=== PATIENT | female | born 1970 | race Caucasian/White ===

== ENCOUNTER → 2016-11-24 | Outpatient (CLI) | payer OTHER ==
--- NOTE | 2016-11-25 09:25 | REPMRS ---
Patient History The patient states she has not had a clinical breast exam in over a year. No known family history of cancer. Digital Mammo Screening Bilat: November 24, 2016 - Exam #: [id number] Bilateral CC and MLO view(s) were taken. Technologist: Abigail Boyd, Technologist Prior study comparison: October 10, 2015, bilateral digital mammo screening bilat performed at [facility]. 2011, digital bilateral screening mammo, performed at [facility]. FINDINGS: There are scattered fibroglandular densities. There has been no change in the appearance of the mammogram from the prior studies. There is a mild amount of residual fibroglandular tissue which is fairly symmetric. There is no interval development of dominant mass, architectural distortion, or clustered microcalcification suggestive of malignancy. ASSESSMENT: BI-RADS/ACR category 1 mammogram. Negative. Recommendation Routine screening mammogram in 1 year (for women over age 40). This mammogram was interpreted with the aid of an FDA-approved computer-aided dectection system. Electronically Signed By: Anand Ley MD 11/25/16 0924
== END ==
LOC: M RAD 17:44
PROVIDERS: ATTEND Nurse Practitioner Family
DX: Z12.31 Encounter for screening mammogram for malignant neoplasm of breast (principal)

== ENCOUNTER → 2019-03-13 | Outpatient (CLI) | payer OTHER | LOC: M RAD 17:21 | PROVIDERS: ATTEND Student in an Organized Health Care Education/Training Program | DX: Z53.9 Procedure and treatment not carried out, unspecified reason (principal); Z12.31 Encounter for screening mammogram for malignant neoplasm of breast ==

== ENCOUNTER → 2019-03-23 | Outpatient (CLI) | payer OTHER ==
--- NOTE | 2019-03-23 19:13 | REP ---
BILATERAL SCREENING DIGITAL MAMMOGRAM WITHOUT 3D TOMOSYNTHESIS: There are no palpable abnormalities or other breast complaints. The the patient states she has not had a clinical breast examination in over a year. The Tyrer-Cuzick Score is: 9.5% . Comparison is 09/20/2015. There are scattered areas of fibroglandular density. There is a new faintly visible 6 mm nodular density in the left breast, not present previously . It is not identified on the MLO view. Impression: BIRADS/ACR category 0 mammogram. Additional imaging evaluation is need. Recommendation: The patient should return for spot compression views and ultrasound of the new right breast nodular density. This mammogram was interpreted with the aid of a FDA approved computer-aided detection system. A. Negative mammogram reports should not delay biopsy if a dominant or clinically suspicious mass is present. B. Not all breast cancers are identified by mammography or tomosynthesis. C. Adenosis and dense breasts may obscure an underlying neoplasm. Patient letter M0. Electronically Signed by Anand Galeana MD 03/23/2019 07:05 P
== END ==
LOC: M RAD 17:32
PROVIDERS: ATTEND Student in an Organized Health Care Education/Training Program
DX: Z12.31 Encounter for screening mammogram for malignant neoplasm of breast (principal); N63.20 Unspecified lump in the left breast, unspecified quadrant

== ENCOUNTER → 2019-04-06 | Outpatient (CLI) | payer OTHER ==
--- NOTE | 2019-04-06 15:06 | REP ---
DIAGNOSTIC MAMMOGRAM LEFT BREAST: Multiple spot compression views left breast performed and correlated with recent mammogram of 03/23/2019 which showed a possible subcentimeter nodule centrally in the left breast, only seen on the CC view. The nodular density compresses out. There is no persistent nodule on today's spot compression views. There is no change since prior studies in the appearance of the fibroglandular tissue. IMPRESSION: ACR 2 benign. The suspected subcentimeter nodule on the recent left CC view of 03/23/2019 compresses out and is not seen. No persistent nodule identified. Recommend followup mammogram in one year. BIRADS 2: BI-RADS/ACR category 2 mammogram. Benign Findings. This mammogram was interpreted with the aid of an FDA-approved computer-aided detection system. The patient letter being requested is M1 Electronically Signed by Anand Ley MD 04/08/2019 10:57 A
== END ==
LOC: M RAD 12:46
PROVIDERS: ATTEND Student in an Organized Health Care Education/Training Program
DX: N63.10 Unspecified lump in the right breast, unspecified quadrant (principal)

== ENCOUNTER 2020-02-15 06:28 | Day surgery (SDC) | payer OTHER ==
[~2020-02-15] VITALS: Ht 157.5 cm; Wt 93.9 kg
[~2020-02-15 06:28] MED LIST: LR 1,000 ML IV ONE
[2020-02-15] MEDS ORDERED: NAPR-885 PO (06:56)
[2020-02-15] MEDS ORDERED: FLUO20CA22 PO (06:56)
[2020-02-15] MEDS ORDERED: CALC-333 PO (06:56)
[2020-02-15] MEDS ORDERED: LISI-542 PO (06:56)
[2020-02-15] MEDS ORDERED: OMEG1CAP16 PO (06:56)
[2020-02-15] MEDS ORDERED: ATOR1TAB19 PO (06:56)
[2020-02-15] MEDS ORDERED: MULTCAP PO (06:56)
[2020-02-15] MEDS ORDERED: METF-838 PO (06:56)
[2020-02-15] MEDS ORDERED: PHAR25CA PO (06:56)
[2020-02-15] MEDS ORDERED: POVIDONE-IODINE 5% OPHTH PREP SOL 30ML As Ordered ONE (07:44)
[2020-02-15] MEDS ORDERED: mitoMYcin 0.2 MG/VIAL KIT FOR OPHTHALMIC USE (J7315 PER 0.2MG) As Ordered ONE (07:45)
[2020-02-15] MEDS ORDERED: PROPARACAINE 0.5% OPHTH SOL 15ML As Ordered ONE (07:48)
[2020-02-15] MEDS ORDERED: LIDOCAINE 2% W/EPINEPHRINE 20ML VIAL **PRES FREE As Ordered ONE (08:24)
[2020-02-15] MEDS ORDERED: propofoL 200 MG/20 ML VIAL As Ordered ONE (08:40)
[2020-02-15 09:00] VITALS: BP 143/86
[2020-02-15] MEDS ORDERED: MIDAZOLAM INJ 2MG/2ML VIAL (J2250 PER 1MG) As Ordered ONE (09:33)
[2020-02-15] MEDS ORDERED: fentaNYL 250 MCG/5 ML INJECTION (J3010) As Ordered ONE (09:33)
== END 2020-02-15 09:31 | disposition home or self-care (01) ==
LOC: M SDC 06:28
PROVIDERS: ATTEND Ophthalmology
DX: H18.891 Other specified disorders of cornea, right eye (principal); I10 Essential (primary) hypertension; E11.9 Type 2 diabetes mellitus without complications; K21.9 Gastro-esophageal reflux disease without esophagitis; Z79.84 Long term (current) use of oral hypoglycemic drugs; Z79.899 Other long term (current) drug therapy; G43.909 Migraine, unspecified, not intractable, without status migrainosus; F41.9 Anxiety disorder, unspecified; F32.9 Major depressive disorder, single episode, unspecified
CPT/HCPCS: 65778; 81025; A6024; C1762; J2250; J3010

== ENCOUNTER 2021-01-14 10:58 | Day surgery (SDC) | payer OTHER ==
[~2021-01-14] VITALS: Ht 157.5 cm; Wt 93.8 kg
[~2021-01-14 10:58] MED LIST changes: +ATOR1TAB19 PO; +CALC-333 PO; +CALC1TAB30 PO; +FLUO20CA22 PO; +FLUO40CA PO; +LISI-898 PO; +LISI10TA22 PO; +LORA-674 PO; +METF-838 PO; +MULTCAP PO; +NAPR-885 PO; +OMEG1CAP16 PO; +OMEG350C PO; +PHAR25CA PO; +VITMTA PO
[2021-01-14 12:43] LABS: HEMATOCRIT 31.8 % (36.0-47.0); HEMOGLOBIN 9.5 g/dl (12.0-15.5); MEAN CORPUSCULAR HEMOGLOBIN 23.5 pg (27.0-33.0); MEAN CORPUSCULAR HGB CONC 29.9 g/dl (32.0-36.5); MEAN CORPUSCULAR VOLUME 78.7 fl (80.0-96.0); PLATELET COUNT, AUTOMATED 391 10^3/uL (150-450); RED BLOOD COUNT 4.04 10^6/uL (4.00-5.40); WHITE BLOOD COUNT 6.3 10^3/uL (4.0-10.0)
[2021-01-14 13:20] LABS: HCG, SERUM QUALITATIVE NEGATIVE (NEGATIVE)
[2021-01-14] MEDS ORDERED: LEVONORGESTREL 52MG (MIRENA) IUD As Ordered ONE (13:25)
[2021-01-14] MEDS ORDERED: fentaNYL 100 MCG/2 ML INJECTION (J3010) As Ordered ONE (13:27)
[2021-01-14] MEDS ORDERED: propofoL 200 MG/20 ML VIAL As Ordered ONE (13:28)
[2021-01-14] MEDS ORDERED: dexameTHASONE 4 MG/ML 1ML VIAL (J1100 PER 1MG) As Ordered ONE (13:57)
[2021-01-14] MEDS ORDERED: ONDANSETRON 4MG/2ML VIAL As Ordered ONE ×2 (13:57→14:49)
[2021-01-14] MEDS ORDERED: HYDROmorphone HCL 2 MG/ML 1ML VIAL (J1170) As Ordered ONE (14:21)
[2021-01-14] MEDS ORDERED: LR 1,000 ML IV SCH (15:00)
[2021-01-14] MEDS ORDERED: oxyCODONE 5MG TAB PO PRN (15:00)
[2021-01-14] MEDS ORDERED: KETOROLAC 30 MG/ML 1ML VIAL IV PRN (15:00)
[2021-01-14] MEDS ORDERED: fentaNYL 100 MCG/2 ML INJECTION (J3010) IV PRN (15:00)
[2021-01-14] MEDS ORDERED: ONDANSETRON 4MG/2ML VIAL IV PRN (15:00)
[2021-01-14] MEDS ORDERED: METOCLOPRAMIDE INJ 10MG/2ML VIAL (J2765 PER 1) As Ordered ONE (15:17)
[2021-01-14] MEDS ORDERED: PROMETHAZINE INJ 25 MG/ML VIAL (J2550) IV PRN (15:25)
[2021-01-14] MEDS ORDERED: METOCLOPRAMIDE INJ 10MG/2ML VIAL (J2765 PER 1) IV PRN (15:25)
--- NOTE | 2021-01-14 15:32 | ROOPDOC ---
[facility] Report Of Operation Report of Operation DATE OF PROCEDURE: 01/14/21 PREPROCEDURE DIAGNOSES: Abnormal uterine bleeding, possible endometrial polyp. POSTPROCEDURE DIAGNOSES: Two endometrial canal masses vs fibroids on the anterior and posterior endometrial canal surfaces PROCEDURE PERFORMED: Hysteroscopy, dilation and curettage SURGEON: Varinder Valentin DO UNDRAPED ARTIST MODEL: None ANESTHESIA: GETA ESTIMATED BLOOD LOSS: Approximately 10ml. COMPLICATIONS: None REMARKS: None FINDINGS: Uterus sounded to 10 cm. 2 cm masses vs fibroids in the endometrial cavity on the anterior and posterior surfaces SPECIMENS REMOVED: Endometrial curettings DESCRIPTION OF PROCEDURE: The risks, benefits, indications, and alternatives of the procedure were reviewed with the patient and informed consent was obtained. The patient was taken to the operating room where IV sedation was obtained without difficulty. The patient was then placed in the lithotomy position using Harlan Stirrups. An exam under anesthesia was then performed and was notable for an enlarged, bulky uterus approximately 10-12 weeks in size. The patient was then prepped and draped in the sterile fashion and the bladder was drained using an in-and-out catheter. A sterile speculum was placed in the patient's vagina and the cervix was visualized. A single toothed tenaculum was used to grasp the anterior lip of the cervix. A uterine sound was then gently placed into the uterus, which sounded to 10 cm in length. The cervix was then gently, serially dilated to a size 14 with the carla dilator. The hysteroscope was then primed . The hysteroscope was then advanced through the endocervical canal under direct visualization. After distension of the uterus with warm saline, a systematic examination of the intrauterine cavity was performed. There were two masses vs fibroids noted wi thin the uterine cavity, both approximately 2 cm in size. These could not be removed easily with graspers, scissors, or forceps. The tubal ostia could not be visualized bilaterally. The Hysteroscope was then removed from the uterus. Fluid deficit was appreciated to be almost entirely on the floor. A gentle, sharp curettage was then performed and a large amount of blood, clot, and tissue was obtained. All tissue was sent to pathology for review. The single toothed tenaculum was removed with good hemostasis noted at the tenaculum sites. All instruments were then removed from the patient's vagina. Hysteroscopic fluid deficit was 30ml of normal saline. It was decided that the IUD could not be safely placed into the uterus secondary to the distorted endome trial cavity. At the completion of the case the sponge and needle counts were correct x 2. The patient tolerated the procedure well. The patient was taken to the PACU in stable condition. VARINDER VALENTIN DO Jan 14, 2021 15:32
[2021-01-14 16:40] VITALS: BP 134/82
== END 2021-01-14 16:43 | disposition home or self-care (01) ==
LOC: M SDC 10:58
PROVIDERS: ATTEND Obstetrics & Gynecology
DX: N93.9 Abnormal uterine and vaginal bleeding, unspecified (principal); N84.0 Polyp of corpus uteri; E11.9 Type 2 diabetes mellitus without complications; I10 Essential (primary) hypertension; E78.5 Hyperlipidemia, unspecified; Z79.84 Long term (current) use of oral hypoglycemic drugs; Z79.899 Other long term (current) drug therapy; F32.9 Major depressive disorder, single episode, unspecified
CPT/HCPCS: 36415; 58558; 84703; 85027; 88305; J1100; J1170; J2405; J2765; J3010; J7298

== ENCOUNTER → 2021-02-14 | Outpatient (CLI) | payer OTHER ==
[~2021-02-14] MED LIST changes: -LR 1,000 ML IV ONE
--- NOTE | 2021-02-14 16:10 | REPMRS ---
Patient History The patient states she has not had a clinical breast exam in over a year. No known family history of cancer. Took hormonal contraceptives for 5 years. Covid vaccines 07/2020 both in right arm. Pt denied . Patient states no breast complaints today. Patient has signed MRS History Sheet. Digital Woman Screen Mammo: February 14, 2021 - Exam #: [id number] Bilateral CC and MLO view(s) were taken. Technologist: RT Tereso Prior study comparison: April 06, 2019, right breast digital mammo diagnostic unilateral, performed at [facility]. March 23, 2019, bilateral digital mammo screening bilat, performed at [facility]. November 24, 2016, bilateral digital mammo screening bilat, performed at [facility]. October 10, 2015, bilateral digital mammo screening bilat, performed at [facility]. FINDINGS: The breast tissue is almost entirely fat. The Volpara volumetric breast density category is: A. There has been no change in the appearance of the mammogram from the prior studies. There is no interval development of dominant mass, architectural distortion, or grouped microcalcification typical of malignancy. 3-D tomosynthesis shows no additional findings. Assessment: BI-RADS/ACR category 1 mammogram. Negative Mammogram. Recommendation Routine screening mammogram of both breasts in 1 year (for women over age 40). This patient's [facility] Lifetime Breast Cancer RIsk is estimated at 9.2 %. This mammogram was interpreted with the aid of an FDA-approved computer-aided dectection system. Electronically Signed By: Kenroy Baker MD 02/14/21 [id number]
== END ==
LOC: M WHC 15:20
PROVIDERS: ATTEND Nurse Practitioner Primary Care
DX: Z12.31 Encounter for screening mammogram for malignant neoplasm of breast (principal)

== ENCOUNTER → 2022-03-25 | Outpatient (CLI) | payer OTHER ==
[~2022-03-25] MED LIST changes: -LISI-898 PO; +LISI5TAB11 PO
== END ==
LOC: M WHC 06:59
PROVIDERS: ATTEND Student in an Organized Health Care Education/Training Program
DX: Z12.31 Encounter for screening mammogram for malignant neoplasm of breast (principal)

== ENCOUNTER → 2023-05-05 | Outpatient (CLI) | payer OTHER ==
[~2023-05-05] MED LIST changes: +LORA-1041 PO; -LORA-674 PO
== END ==
LOC: M WHC 14:29
PROVIDERS: ATTEND Nurse Practitioner Primary Care
DX: Z12.31 Encounter for screening mammogram for malignant neoplasm of breast (principal)

== ENCOUNTER 2024-02-02 11:51 | Outpatient (CLI) | payer OTHER ==
[~2024-02-02] VITALS: Ht 154.9 cm; Wt 91.0 kg
[~2024-02-02 11:51] MED LIST changes: +ALBUTEROL SULFATE 2.5MG/0.5ML INH NEB SOLN INH PRN; +EPINEPHrine INJ 1 MG/ML 1ML AMP IM PRN; +FLUO-365 PO; -FLUO20CA22 PO; +diphenhydrAMINE 50MG/ML VIAL IV PRN; +methylPREDNISolone 125MG 2ML VIAL IV PRN
[2024-02-02] MEDS ORDERED: NS 1,000 ML IV SCH (12:00)
[2024-02-02 12:10] VITALS: BP 142/88; O2SAT 98
[2024-02-02] MEDS: FERRIC CARBOXYMALTOSE INJ 750 MG in NS 250 ML (>50kg) IV ONE (12:20)
[2024-02-02] MEDS ORDERED: CYCL5TAB PO (12:48)
[2024-02-02] MEDS ORDERED: SEMA0.257 SQ (12:48)
[2024-02-02] MEDS ORDERED: SUMA25TA3 PO (12:48)
[2024-02-02 13:40] VITALS: BP 144/83; O2SAT 99
== END 2024-02-02 13:40 ==
LOC: M INFU 11:51
PROVIDERS: ATTEND Internal Medicine
DX: D64.9 Anemia, unspecified (principal)
CPT/HCPCS: 96365; J1439

== ENCOUNTER 2024-02-16 12:10 | Outpatient (CLI) | payer OTHER ==
[~2024-02-16] VITALS: Ht 157.5 cm; Wt 90.9 kg
[2024-02-16 12:10] VITALS: BP 146/73; O2SAT 97
[~2024-02-16 12:10] MED LIST changes: +CYCL5TAB PO; +NS 1,000 ML IV SCH; +SEMA0.257 SQ; +SUMA25TA3 PO
[2024-02-16] MEDS: FERRIC CARBOXYMALTOSE INJ 750 MG in NS 250 ML (>50kg) IV ONE (12:34)
[2024-02-16 13:50] VITALS: BP 144/66; O2SAT 100
== END 2024-02-16 15:53 ==
LOC: M INFU 12:10
PROVIDERS: ATTEND Internal Medicine
DX: D64.9 Anemia, unspecified (principal)
CPT/HCPCS: 96365; J1439

== ENCOUNTER → 2024-04-03 | Outpatient (CLI) | payer OTHER ==
[~2024-04-03] MED LIST changes: -ALBUTEROL SULFATE 2.5MG/0.5ML INH NEB SOLN INH PRN; -EPINEPHrine INJ 1 MG/ML 1ML AMP IM PRN; +MULT-90 PO; -NS 1,000 ML IV SCH; +PROHANCE 279.3MG/ML 5ML VIAL As Ordered ONE; -diphenhydrAMINE 50MG/ML VIAL IV PRN; -methylPREDNISolone 125MG 2ML VIAL IV PRN
== END ==
LOC: M RAD 15:42
PROVIDERS: ATTEND Internal Medicine
DX: D49.7 Neoplasm of unspecified behavior of endocrine glands and other parts of nervous system (principal)
CPT/HCPCS: 70553; A9576

== ENCOUNTER → 2024-05-08 | Outpatient (CLI) | payer OTHER ==
[~2024-05-08] MED LIST changes: -CYCL5TAB PO; +CYCL5TAB4 PO; -PROHANCE 279.3MG/ML 5ML VIAL As Ordered ONE
== END ==
LOC: M WHC 13:47
PROVIDERS: ATTEND Internal Medicine
DX: Z12.31 Encounter for screening mammogram for malignant neoplasm of breast (principal)

== ENCOUNTER → 2024-05-26 | Outpatient (CLI) | payer OTHER ==
[~2024-05-26] MED LIST changes: +ALEV220T22 PO; +GNP1000T11 PO; +LISI20TA33 PO; +NIFE60TA96 PO; +PERC5TAB12 PO; +SEMA1PEN2 SQ
== END ==
LOC: M EKG 12:43
PROVIDERS: ATTEND Anesthesiology
DX: Z01.818 Encounter for other preprocedural examination (principal); I10 Essential (primary) hypertension; E11.9 Type 2 diabetes mellitus without complications; I45.19 Other right bundle-branch block

== ENCOUNTER 2024-05-31 06:52 | Day surgery (SDC) | payer OTHER ==
[~2024-05-31] VITALS: Ht 157.5 cm; Wt 90.6 kg
[~2024-05-31 06:52] MED LIST changes: -PERC5TAB12 PO
[2024-05-31] MEDS ORDERED: NS (Normal Saline) 0.9% 1,000 ML IV SCH ×2 (07:00→11:30)
[2024-05-31 07:47] LABS: HEMATOCRIT 40.8 % (36.0-47.0); HEMOGLOBIN 13.4 g/dl (12.0-15.5); MEAN CORPUSCULAR HEMOGLOBIN 30.2 pg (27.0-33.0); MEAN CORPUSCULAR HGB CONC 32.8 g/dl (32.0-36.5); MEAN CORPUSCULAR VOLUME 92.1 fl (80.0-96.0); PLATELET COUNT, AUTOMATED 413 10^3/uL (150-450); RED BLOOD COUNT 4.43 10^6/uL (4.00-5.40); WHITE BLOOD COUNT 7.1 10^3/uL (4.0-10.0)
[2024-05-31] MEDS: SCOPOLAMINE 1MG TRANSDERMAL PATCH TOP ONE (08:04)
[2024-05-31 08:05] LABS: BLOOD UREA NITROGEN 9 MG/DL (9-23); CALCIUM LEVEL 9.3 MG/DL (8.5-10.1); CARBON DIOXIDE LEVEL 24 MMOL/L (20-31); CHLORIDE LEVEL 106 MMOL/L (98-107); GLOMERULAR FILTRATION RATE > 60.0 (>51); GLUCOSE, FASTING 167 MG/DL (60-100); POTASSIUM SERUM 4.3 MMOL/L (3.5-5.1); SODIUM LEVEL 139 MMOL/L (136-145)
[2024-05-31] MEDS ORDERED: MIDAZOLAM INJ 2MG/2ML VIAL As Ordered ONE (08:16)
[2024-05-31] MEDS ORDERED: fentaNYL 100 MCG/2 ML INJECTION As Ordered ONE (08:17)
[2024-05-31] MEDS ORDERED: SUGAMMADEX SODIUM 500 MG/5 ML VIAL (BRIDION) As Ordered ONE (08:17)
[2024-05-31] MEDS ORDERED: ACETAMINOPHEN 1000MG/100ML IV BAG As Ordered ONE (08:17)
[2024-05-31] MEDS ORDERED: propofoL 200 MG/20 ML VIAL As Ordered ONE (08:18)
[2024-05-31] MEDS ORDERED: ROCURONIUM BROMIDE 50MG/5ML VIAL As Ordered ONE (08:18)
[2024-05-31] MEDS ORDERED: LIDOCAINE 2% 100MG/5ML SDV (FOR ANES.) As Ordered ONE (08:18)
[2024-05-31] MEDS: ceFAZolin SOD 2 GM in IV 1 EA IV ONE (09:30)
[2024-05-31] MEDS: FLUORESCEIN 10% (100MG/ML) 5ML VIAL As Ordered ONE (11:03)
[2024-05-31] MEDS ORDERED: oxyCODONE 5MG TAB PO PRN (11:30)
[2024-05-31] MEDS ORDERED: PERC5TAB12 PO (11:32)
[2024-05-31] MEDS: HYDROMORPHONE HCL 0.5 MG/ 0.5 ML SYRINGE IV PRN (11:53)
[2024-05-31] MEDS: ONDANSETRON 4MG 2ML VIAL IV PRN (11:53)
[2024-05-31] MEDS: METOCLOPRAMIDE INJ 10MG/2ML VIAL IV PRN (12:10)
[2024-05-31] MEDS: fentaNYL 100 MCG/2 ML INJECTION IV PRN (12:17)
[2024-05-31] MEDS ORDERED: PERCOCET 5MG/325MG TAB PO PRN (13:00)
[2024-05-31] MEDS ORDERED: IBUPROFEN 800 MG TAB PO SCH (14:00)
[2024-05-31 15:14] VITALS: BP 136/79; TEMP 97.6; O2SAT 98
[2024-05-31] MEDS ORDERED: SIMETHICONE 80MG CHEW TAB PO SCH (18:00)
== END 2024-05-31 15:23 | disposition home or self-care (01) ==
LOC: M SDC 06:52
PROVIDERS: ATTEND Obstetrics & Gynecology
DX: N80.03 Adenomyosis of the uterus (principal); D25.9 Leiomyoma of uterus, unspecified; N92.0 Excessive and frequent menstruation with regular cycle; D50.0 Iron deficiency anemia secondary to blood loss (chronic); N88.8 Other specified noninflammatory disorders of cervix uteri; N83.8 Other noninflammatory disorders of ovary, fallopian tube and broad ligament; E11.9 Type 2 diabetes mellitus without complications; I10 Essential (primary) hypertension; E78.00 Pure hypercholesterolemia, unspecified; Z79.899 Other long term (current) drug therapy; Z79.85 Long-term (current) use of injectable non-insulin antidiabetic drugs; D35.2 Benign neoplasm of pituitary gland; H04.123 Dry eye syndrome of bilateral lacrimal glands; D35.4 Benign neoplasm of pineal gland; E88.810 Metabolic syndrome
CPT/HCPCS: 36415; 58573; 80048; 81025; 85027; 86850; 86900; 86901; 88305; 88307; J0131; J0665; J0690; J1100; J1171; J2250; J2405; J2765; J3010; S2900

== ENCOUNTER → 2025-05-14 | Outpatient (CLI) | payer OTHER ==
[~2025-05-14] MED LIST changes: +PERC5TAB12 PO
== END ==
LOC: M WHC 13:56
PROVIDERS: ATTEND Internal Medicine
DX: Z12.31 Encounter for screening mammogram for malignant neoplasm of breast (principal); R92.313 Mammographic fatty tissue density, bilateral breasts